=== PATIENT | female | born 1990 | race Two or more races ===

== ENCOUNTER 2023-05-04 02:22 | Inpatient (IN) | payer BC, OTHER ==
[~2023-05-04] VITALS: Ht 167.6 cm; Wt 95.3 kg
[2023-05-04 03:18] LABS: HEMATOCRIT 36.5 % (35.0-50.0); HEMOGLOBIN 12.6 g/dL (12.0-18.0); MCH 31.6 (27-36); MCHC 34.5 g/dl (30-36); MCV 91.5 fl (81-99); RBC 3.99 M/ul (4.3-5.7); RDW 13.6 (10.5-15.0)
[2023-05-04 03:49] LABS: AMPHETAMINES, URINE NEGATIVE (NEGATIVE); BARBITURATES, URINE NEGATIVE (NEGATIVE); BENZODIAZEPINE, URINE NEGATIVE (NEGATIVE); BUPRENORPHINE, URINE NEGATIVE (NEGATIVE); CANNABINOID, URINE NEGATIVE (NEGATIVE); COCAINE, URINE NEGATIVE (NEGATIVE); ECSTASY, URINE NEGATIVE (NEGATIVE); FENTANYL, URINE NEGATIVE (NEGATIVE); METHADONE, URINE NEGATIVE (NEGATIVE); OPIATES, URINE NEGATIVE (NEGATIVE); OXYCODONE, URINE NEGATIVE (NEGATIVE); PHENCYCLIDINE, URINE NEGATIVE (NEGATIVE)
[2023-05-04 03:54] LABS: ABO O; ANTIBODY SCREEN NEGATIVE; RH POSITIVE
--- NOTE | 2023-05-04 04:40 | PR ---
[facility] [address] [facility] [place], [place] [address] Signed Progress Notes IP Datetime Report Generated by CPN: 05/04/2023 04:40 PROGRESS NOTES: [id number] Impression: Normal Progression of Labor; Reassuring Heart Rate Procedures: Sterile Vag Exam Other Procedures: SROM w/ SVE Plan: Continue Present Management; Anticipate Vaginal Delivery Informed Consent Obtain: Vaginal Delivery VITAL SIGNS: [id number] Vital Signs: Reviewed EXAM: [id number] Dilatation: 7.0 Effacement: 70 Station: -3 Contractions: q 2 minutes MEMBRANES: [id number] Comments: Pt seen and examined. Doing well. 7/80. Large bulging bag. Discussed AROM and while discussing pt SROM for large amount of clear fluid. Anticipate . Reviewed anticipated course of labor and delivery. All questions answered. FETUS A: [id number] Variability: Moderate 6-25bpm Decelerations: None FHR Category: Category I Presentation: Vertex Comments on Fetus A: indeterminate baseline FETUS B: [id number] Signing Physician: Brayan Khan DO Copies: ~ *Electronically Signed* 05/04/23 3863 BRAYAN KHAN (KATIE) DO PATIENT NAME: LORRIE STAPLETON PROGRESS NOTE DATE OF : 89 PHYSICIAN: BRAYAN KHAN (JD) DO RPT #: [id number] REPORT IS CONFIDENTIAL AND NOT TO BE RELEASED WITHOUT AUTHORIZATION
[2023-05-04 05:07] VITALS: BP 102/60
[2023-05-05 05:31] LABS: HEMATOCRIT 33.7 % (35.0-50.0); HEMOGLOBIN 11.6 g/dL (12.0-18.0); MCH 31.8 (27-36); MCHC 34.3 g/dl (30-36); MCV 92.9 fl (81-99); RBC 3.63 M/ul (4.3-5.7); RDW 13.4 (10.5-15.0)
--- NOTE | 2023-05-05 08:56 | PR ---
[facility] [address] [facility] [place], [place] [address] Signed PP Progress Notes Datetime Report Generated by CPN: 05/05/2023 08:56 SUBJECTIVE: [id number] Pain: Within Normal Limits Nausea/Vomiting: Denies Flatus: Yes Bowel Movement: No Vital Signs: [id number] Vital Signs: Reviewed; Within Normal Limits Cardiovascular: Normal Respiratory: Normal Abdomen/Uterus: Normal Lochia: Normal Vulva/Perineum: Not Done Breasts: Not Done CVA Tenderness: Normal Extremities: Normal Incision: Not Applicable Progress: Normal Exam Comments: Fundus firm U-2 nontender IMPRESSION/PLAN/PROCEDURES: [id number] Impression: Normal Progression Plan: Discharge Progress Notes: Pt seen and examined. Doing well. Ambulating, voiding, and tolerating full diet. Pain and lochia minimal. Desires d/c home. well. Reviewed d/c instructions. Planning vasectomy for pp contraception. All questions answered. Signing Physician: Brayan Khan DO Copies: ~ *Electronically Signed* 05/05/23 0856 BRAYAN KHAN (KATIE) DO PATIENT NAME: LORRIE STAPLETON PROGRESS NOTE DATE OF : 91 PHYSICIAN: BARYAN KHAN (KATIE) DO RPT #: [id number] REPORT IS CONFIDENTIAL AND NOT TO BE RELEASED WITHOUT AUTHORIZATION
== END 2023-05-05 11:25 | disposition home or self-care (01) | DRG 807 ==
LOC: FBCO 02:22 → FBC 02:41
PROVIDERS: ADMIT Obstetrics & Gynecology; ATTEND Obstetrics & Gynecology
PROC: 10E0XZZ Delivery of Products of Conception, External Approach (ICD-10-PCS; principal; 2023-05-04)
PROC: 3E0R3BZ Introduction of Anesthetic Agent into Spinal Canal, Percutaneous Approach (ICD-10-PCS; 2023-05-04)
PROC: 00HU33Z Insertion of Infusion Device into Spinal Canal, Percutaneous Approach (ICD-10-PCS; 2023-05-04)
DX: O76 Abnormality in fetal heart rate and rhythm complicating labor and delivery (principal); Z37.0 Single live birth; O69.1XX0 Labor and delivery complicated by cord around neck, with compression, not applicable or unspecified; Z3A.39 39 weeks gestation of pregnancy
CPT/HCPCS: 01960; 36415; 80307; 85027; 86850; 86900; 86901; A9270; J2590; J2795; J7121

== ENCOUNTER 2024-07-05 16:17 | Emergency (ER) | payer BC, OTHER ==
[~2024-07-05] VITALS: Ht 182.9 cm; Wt 71.8 kg
[2024-07-05] MEDS ORDERED: DOXYCYCLINE HY100 MG PO (16:33)
[2024-07-05] MEDS ORDERED: ONDANSETRON 4 MG TAB ODT SL ONE (16:45)
[2024-07-05] MEDS ORDERED: ACYCLOVIR 400 MG TAB PO ONE (16:45)
[2024-07-05] MEDS ORDERED: HYDROCODONE/ACETA 7.5/325 TAB PO ONE (16:45)
[2024-07-05] MEDS ORDERED: HYDROCODON-ACE1 EA11 PO (16:50)
[2024-07-05] MEDS ORDERED: FAMCICLOVIR500 MG PO (16:50)
[2024-07-05] MEDS ORDERED: ONDANSETRON ODT8 MG PO (16:50)
[2024-07-05 17:20] VITALS: BP 105/73
== END 2024-07-05 17:20 | disposition home or self-care (01) ==
LOC: ED 16:17
DX: B02.9 Zoster without complications (principal)
CPT/HCPCS: 99283; A9270